=== PATIENT | female | born 1950 | race Caucasian/White ===

== ENCOUNTER → 2016-05-31 | Outpatient (CLI) | payer MEDICARE, OTHER ==
--- NOTE | 2016-05-31 16:13 | KCIC ---
PROCEDURE Complete pelvic ultrasound. HISTORY Postmenopausal bleeding. Follow-up. TECHNIQUE Real-time ultrasound imaging of the pelvis using transabdominal and transvaginal windows performed. COMPARISON Transvaginal pelvic ultrasound June 03, 2014. FINDINGS Uterus measures 7.2 x 3.7 x 4.7 cm. The endometrial stripe is thickened and heterogeneous measuring up to 15 millimeters. On prior study it measured 10 millimeters. Right ovary is not well seen measuring 1.8 x 1.1 x 1.2 cm. There is normal arterial flow. The left ovary is not identified. No cul-de-sac free fluid. IMPRESSION 1. The endometrial stripe is abnormally thickened and heterogeneous. The thickening is worse than on the prior study. Considerations include endometrial hyperplasia, carcinoma, or polyp. 2. Left ovary is not identified. Electronically signed by: Simon Mckeon MD (May 31, 2016 16:12:07)
== END | disposition home or self-care (01) ==
LOC: KCIC US 15:14
PROVIDERS: ATTEND Obstetrics & Gynecology
DX: N95.0 Postmenopausal bleeding (principal); N85.00 Endometrial hyperplasia, unspecified
CPT/HCPCS: 76830; 76856

== ENCOUNTER → 2018-06-14 | Outpatient (CLI) | payer MEDICARE, OTHER ==
--- NOTE | 2018-06-14 09:13 | KCIC ---
Examination: PELVIS W/TV History: Postmenopausal bleeding Comparison/Correlation: None Findings: Transabdominal and transvaginal pelvic ultrasound exam were performed. Transvaginal technique was utilized to better assess the adnexal structures. Uterus measures 6.5 cm x 3.6 cm x 3 3.8 cm. Endometrial thickness of 1.3 cm noted. Heterogeneous appearance of the myometrium noted. Calcifications are noted involving the myometrium and endometrium. Ovaries are not identified. Overlying bowel gas may limit assessment. No pelvic free fluid. Impression: Thickened endometrium is present. Consider direct visualization to exclude underlying mass lesion. Heterogeneity of the myometrium which may represent diffuse fibroid involvement. Electronically signed by: Carlos Fraser MD (06/14/2018 9:09 AM) [facility]
== END | disposition home or self-care (01) ==
LOC: KCIC US 07:32
PROVIDERS: ATTEND Obstetrics & Gynecology
DX: N95.0 Postmenopausal bleeding (principal); R93.89 Abnormal findings on diagnostic imaging of other specified body structures
CPT/HCPCS: 76830; 76856

== ENCOUNTER 2019-02-20 08:40 | Inpatient (IN) | payer MEDICARE, OTHER ==
[~2019-02-20] VITALS: Ht 167.6 cm; Wt 107.5 kg
[2019-02-20] MEDS ORDERED: NITROGLYCERIN SUBLINGUAL 0.4 MG BOTTLE OF 25. SL PRN (09:00)
[2019-02-20 09:06] LABS: BASO % 1 % (0-3); EOS # 0.2 x10^3/uL (0.0-0.7); EOS % 2 % (0-3); HEMATOCRIT 40.2 % (36.0-47.0); HEMOGLOBIN 13.7 g/dL (12.0-15.5); LYMPH # 1.7 x10^3/uL (1.0-4.8); LYMPH % 21 % (24-48); MEAN CORPUSCULAR HEMOGLOBIN 32 pg (25-35); MEAN CORPUSCULAR HGB CONC 34 g/dL (31-37); MEAN CORPUSCULAR VOLUME 92 fL (79-100); MONO # 0.7 x10^3/uL (0.0-1.1); MONO % 9 % (0-9); NEUT # 5.3 x10^3/uL (1.8-7.7); NEUT % 67 % (31-73); PLATELET COUNT 257 x10^3/uL (140-400); RED BLOOD COUNT 4.35 x10^6/uL (3.50-5.40); RED CELL DISTRIBUTION WIDTH 13.3 % (11.5-14.5); WHITE BLOOD COUNT 7.8 x10^3/uL (4.0-11.0)
--- NOTE | 2019-02-20 09:11 | RAD ---
PORTABLE CHEST 1V History: Chest pain Comparison: October 01, 2014 Findings: Single view of the chest is submitted. There is no lobar consolidation, pleural fluid, pneumothorax.There is some atherosclerotic calcification near the aortic arch. Appearance of somewhat more prominent pericardial cardiac silhouette may be accentuated by differences in technique. Impression: 1. Appearance of somewhat more prominent pericardial cardiac silhouette could be accentuated by differences in technique, otherwise no acute radiographic abnormality. Electronically signed by: Rip Licona MD (02/20/2019 9:08 AM) [id number]
[2019-02-20 09:15] LABS: PROTHROMBIN TIME PATIENT 12.9 SEC (11.7-14.0)
[2019-02-20 09:22] LABS: CALCIUM 9.9 mg/dL (8.5-10.1); CREATININE 1.1 mg/dL (0.6-1.0); GFR 49.1
[2019-02-20 09:24] LABS: POTASSIUM 4.6 mmol/L (3.5-5.1)
[2019-02-20 09:28] LABS: ALBUMIN 3.7 g/dL (3.4-5.0); ALBUMIN/GLOBULIN RATIO 0.8 (1.0-1.7); MAGNESIUM 1.9 mg/dL (1.8-2.4); TOTAL BILIRUBIN 0.7 mg/dL (0.2-1.0); TOTAL PROTEIN 8.2 g/dL (6.4-8.2)
--- NOTE | 2019-02-20 09:49 | PHYS DOC ---
Past Medical History Past Medical History: Diabetes-Type I, Hypertension Past Surgical History: No Surgical History Alcohol Use: None Drug Use: None Adult General Chief Complaint Chief Complaint: CHEST PAIN [facility] HPI Patient is a 68 year old female who presents with complaining of chest pain. Patient complaining of intermittent episodes of substernal aching chest pain since 0430 today that last about 10- 15 minutes and repeated several times and rated her pain as 1- 2/10. She denies shortness of breath, dizziness, p alpitation, cough and congestion, fever and chills, nausea and vomiting. Patient states she thought she had indigestion because of umbilical and hiatal hernia and took Nexium without improvement of her pain. Patient states she had episodes of milder chest pain previously as a heart and denies history of cardiac problems. Review of Systems Review of Systems Constitutional: Denies fever or chills [] Eyes: Denies change in visual acuity, redness, or eye pain [] HENT: Denies nasal congestion or sore throat [] Respiratory: Denies cough or shortness of breath [] Cardiovascular: No additional information not addressed in HPI [] GI: Denies abdominal pain, nausea, vomiting, bloody stools or diarrhea [] : Denies dysuria or hematuria [] Musculoskeletal: Denies back pain or joint pain [] Integument: Denies rash or skin lesions [] Neurologic: Denies headache, focal weakness or sensory changes [] Endocrine: Denies polyuria or polydipsia [] All other systems were reviewed and found to be within normal limits, except as documented in this note. Current Medications Current Medications Current Medications Medications (Trade) Dose Ordered Sig/Marina Start Time Stop Time Status Last Admin Dose Admin Carvedilol (Coreg) 25 mg 1X STAT 02/20/19 10:35 02/20/19 10:44 DC 02/20/19 10:57 25 MG Nitroglycerin (Nitrostat) 0.4 mg PRN Q5MIN PRN 02/20/19 09:00 02/21/19 08:59 02/20/19 09:36 0.4 MG Allergies Allergies Allergies Coded Allergies Type Severity Reaction Last Updated Verified No Known Drug Allergies 02/20/19 No Physical Exam Physical Exam Constitutional: Well developed, well nourished, mild distress, non-toxic appearance. [] HENT: Normocephalic, atraumatic. Eyes: PERRLA, EOMI, conjunctiva normal, no discharge. [] Neck: Normal range of motion, no tenderness, supple, no stridor. [] Cardiovascular:Heart rate regular rhythm, no murmur [] Lungs & Thorax: Bilateral breath sounds clear to auscultation [] Abdomen: Bowel sounds normal, soft, no tenderness, no masses, no pulsatile masses, large umbilical hernia with fat containing without tenderness or sign of obstruction. [] Skin: Warm, dry, no erythema, no rash. [] Back: No tenderness, no CVA tenderness. [] Extremities: No tenderness, no cyanosis, no clubbing, ROM intact, no edema. [] Neurologic: Alert and oriented X 3, no focal deficits noted. [] Psychologic: Affect normal, judgement normal, mood normal. [] Current Patient Data Vital Signs Vital Signs Date Time Temp Pulse Resp B/P (MAP) Pulse Ox O2 Delivery O2 Flow Rate FiO2 02/20/19 09:58 180/86 (117) 02/20/19 09:49 64 18 95 Room Air 02/20/19 08:40 97.8 97.8 Lab Values Laboratory Tests Test 02/20/19 08:56 White Blood Count 7.8 x10^3/uL (4.0-11.0) Red Blood Count 4.35 x10^6/uL (3.50-5.40) Hemoglobin 13.7 g/dL (12.0-15.5) Hematocrit 40.2 % (36.0-47.0) Mean Corpuscular Volume 92 fL (79-100) Mean Corpuscular Hemoglobin 32 pg (25-35) Mean Corpuscular Hemoglobin Concent 34 g/dL (31-37) Red Cell Distribution Width 13.3 % (11.5-14.5) Platelet Count 257 x10^3/uL (140-400) Neutrophils (%) (Auto) 67 % (31-73) Lymphocytes (%) (Auto) 21 % (24-48) L Monocytes (%) (Auto) 9 % (0-9) Eosinophils (%) (Auto) 2 % (0-3) Basophils (%) (Auto) 1 % (0-3) Neutrophils # (Auto) 5.3 x10^3/uL (1.8-7.7) Lymphocytes # (Auto) 1.7 x10^3/uL (1.0-4.8) Monocytes # (Auto) 0.7 x10^3/uL (0.0-1.1) Eosinophils # (Auto) 0.2 x10^3/uL (0.0-0.7) Basophils # (Auto) 0.0 x10^3/uL (0.0-0.2) Prothrombin Time 12.9 SEC (11.7-14.0) Prothrombin Time INR 1.0 (0.8-1.1) Sodium Level 138 mmol/L (136-145) Potassium Level 4.6 mmol/L (3.5-5.1) Chloride Level 103 mmol/L (98-107) Carbon Dioxide Level 26 mmol/L (21-32) Anion Gap 9 (6-14) Blood Urea Nitrogen 25 mg/dL (7-20) H Creatinine 1.1 mg/dL (0.6-1.0) H Estimated GFR (Cockcroft-Gault) 49.1 BUN/Creatinine Ratio 23 (6-20) H Glucose Level 139 mg/dL (70-99) H Calcium Level 9.9 mg/dL (8.5-10.1) Magnesium Level 1.9 mg/dL (1.8-2.4) Total Bilirubin 0.7 mg/dL (0.2-1.0) Aspartate Amino Transferase (AST) 23 U/L (15-37) Alanine Aminotransferase (ALT) 20 U/L (14-59) Alkaline Phosphatase 101 U/L (46-116) Creatine Kinase 76 U/L (26-192) Troponin I Quantitative < 0.017 ng/mL (0.000-0.055) EH-Csi-X-Type Natriuretic Peptide 101 pg/mL (0-124) Total Protein 8.2 g/dL (6.4-8.2) Albumin 3.7 g/dL (3.4-5.0) Albumin/Globulin Ratio 0.8 (1.0-1.7) L Triglycerides Level 111 mg/dL (0-150) Cholesterol Level 162 mg/dL (0-200) LDL Cholesterol, Calculated 86 mg/dL (0-100) VLDL Cholesterol, Calculated 22 mg/dL (0-40) Non-HDL Cholesterol Calculated 108 mg/dL (0-129) HDL Cholesterol 54 mg/dL (40-60) Cholesterol/HDL Ratio 3.0 Lipase 219 U/L (73-393) Laboratory Tests 02/20/19 08:56 Laboratory Tests 02/20/19 08:56 EKG EKG Interpreted by me. EKG at 0 847 showed normal sinus rhythm at rate of 66, leftward axis, no ST/T-wave elevation. Radiology/Procedures Radiology/Procedures [][facility] [address] [place] [address] IMAGING REPORT Signed PATIENT: DALLIN BRIDGES ACCOUNT: [id number] : 1950 LOCATION: ER AGE: 68 SEX: F EXAM STATUS: REG ER ORD. PHYSICIAN: CAYDEN WILLIAMSON MD REASON: chest pain PROCEDURE: PORTABLE CHEST 1V PORTABLE CHEST 1V History: Chest pain Comparison: October 01, 2014 Findings: Single view of the chest is submitted. There is no lobar consolidation, pleural fluid, pneumothorax.There is some atherosclerotic calcification near the aortic arch. Appearance of somewhat more prominent pericardial cardiac silhouette may be accentuated by differences in technique. Impression: 1. Appearance of somewhat more prominent pericardial cardiac silhouette could be accentuated by differences in technique, otherwise no acute radiographic abnormality. Electronically signed by: Trinidad Licona MD (02/20/2019 9:08 AM) [id number] DICTATED and SIGNED BY: TRINIDAD LICONA MD DATE: 02/20/19907 Course & Med Decision Making Course & Med Decision Making Pertinent Labs and Imaging studies reviewed. (See chart for details) Evaluation of patient in ER showed 68-year-old male patient with heart score of 5 complaining of episodes of chest pain since this morning with unremarkable EKG and lab. Patient had elevation of blood pressure in ER and was anxious and treated with her home medication and felt better. Patient didn't want to take new medication from emergency room. Patient refused to take aspirin. Patient requiring admission for further evaluation and treatment. Discussed with Dr. Box who is in agreement with admission. Discussed findings and plan with patient and family, who acknowledge understanding and agreement. Dragon Disclaimer Dragon Disclaimer This electronic medical record was generated, in whole or in part, using a voice recognition dictation system. Departure Departure Impression: Primary Impression: Acute chest pain Additional Impressions: Renal insufficiency Hypertensive urgency Anxiety about health Disposition: 09 ADMITTED INPATIENT (1055) Admitting Physician: VIOLET (Dr. Box accepted admission at 1054) Condition: IMPROVED Referrals: JORDAN LOPEZ MD (PCP) Scripts Montelukast Sodium (MONTELUKAST SODIUM TABLET ) 10 Mg Tablet 10 MG PO HS PRN for 48 hours prior to allergy seas for 30 Days, #30 TAB 5 Refills Prov: PRISCILA BOX MD 02/20/19 The HEART Score for CP Pts HEART Score for Chest Pain: HEART Score for Chest Pain Response (Comments) Value History Moderately Suspicious 1 ECG Normal 0 Age > 65 2 Risk Factors >3 Risk Factors or Hx CAD 2 Troponin < Normal Limit 0 Total 5 Risk Factors: Risk Factors: DM, Current or recent (<one month) smoker, HTN, HLP, family history of CAD, obesity. Risk Scores: Score 0 - 3: 2.5% MACE over next 6 weeks - Discharge Home Score 4 - 6: 20.3% MACE over next 6 weeks - Admit for Clinical Observation Score 7 - 10: 72.7% MACE over next 6 weeks - Early Invasive Strategies Problem Qualifiers CAYDEN WILLIAMSON MD Feb 20, 2019 09:49
--- NOTE | 2019-02-20 09:55 | RAD ---
ABDOMEN LTD History: Epigastric and right upper quadrant pain Comparison: None. Findings: Multiple sonographic images of the abdomen are submitted. Right lobe liver measured 16.7 cm longitudinal. Hepatic echogenicity is within normal limits. There is no abnormality visualized pancreas, tail of pancreas obscured by bowel gas. Visualized abdominal aortic caliber is within normal limits, distally obscured by bowel gas. There is segmental visualization of the inferior vena cava. Right kidney measured 10.5 0.4 x 5.5 cm, no hydronephrosis. There is a hypoechoic lesion superiorly of the right kidney on the order of 4.7 x 4.3 x 5 cm. There is a hypoechoic lesion inferiorly of the right kidney about 6.8 x 6.5 x 5.6 cm. Gallbladder is present without intraluminal abnormality, wall thickening, pericholecystic fluid. Common bile duct is within normal limits about 0.4 cm. Impression: 1. There are large right renal cysts. No other significant abnormality is demonstrated, incompletely visualization of pancreatic tail and the distal abdominal aorta. Electronically signed by: Rip Licona MD (02/20/2019 9:52 AM) [id number]
--- NOTE | 2019-02-20 10:23 | EKG ---
[facility] [address] [place] [address] Test Date: 2019-02-20 Test Time: 08:47:22 Pat Name: DALLIN BRIDGES Department: Room: Gender: F Surgical Services Manager: : 1950 Requested By: CAYDEN WILLIAMSON Order Number: [id number] Reading MD: Gigi Packer MD Measurements Intervals [place] Rate: 65 P: 65 ME: 190 QRS: -7 QRSD: 86 T: 15 QT: 380 QTc: 400 Interpretive Statements SINUS RHYTHM Electronically Signed On 02-20-2019 12:38:41 CDT by Gigi Packer MD
[2019-02-20] MEDS ORDERED: CARVEDILOL 12.5 MG TABLET. PO STA (10:35)
[2019-02-20] MEDS ORDERED: cloNIDine HCL 0.1 MG TABLET PO ONE (10:45)
[2019-02-20] MEDS ORDERED: LORazepam 0.5 MG TABLET PO ONE (10:45)
--- NOTE | 2019-02-20 11:02 | PDOC1 ---
History and Physical Date of Admission Date of Admission DATE: 02/20/19 TIME: 11:00 Identification/Chief Complaint Chief Complaint Chest pain Source Source: Patient History of Present Illness History of Present Illness Ms Norton is a 68yo F w/ PMHx Diabetes, Hypertension, MIHIR on CPAP, Rajan's Esophagus who presents with complaining of chest pain that awoke her at 4:30 this morning. Patient complaining of intermittent episodes of substernal aching chest pain since then that last about 10- 15 minutes and repeated several times and rated her pain as 1- 2/10. She denies shortness of breath, dizziness, palpitation, cough and congestion, fever and chills, nausea and vomiting. Patient states she thought she had exacerbation of her prior GERD because of h/o Rajan's and hiatal hernia and took Nexium without improvement of her pain. Patient states she had episodes of milder chest pain previously as a heart and denies history of cardiac problems. Does f/u with Dr. Keith outpatient. She has not been sleeping well. CXR shows enlarged pericardial silhouette, EKG shows leftward axis, no ST segment changes. Initial troponin negative Past Medical History Cardiovascular: HTN, Hyperlipidemia Pulmonary: Other (MIHIR on CPAP) GI: GERD, Other (Rajan's esophagus) Heme/Onc: No pertinent hx Hepatobiliary: No pertinent hx Psych: No pertinent hx Rheumatologic: No pertinent hx Infectious disease: No pertinent hx ENT: No pertinent hx Renal/: No pertinent hx Endocrine: Diabetes Dermatology: No pertinent hx Past Surgical History Past Surgical History: Cataract Removal, Total knee replacement (Bilateral), Tubal Ligation Family History Family History: Diabetes, Hypertension Social History Smoke: No ALCOHOL: none Drugs: None Current Problem List Problem List Problems Medical Problems: (1) Acute chest pain Status: Acute (2) Renal insufficiency Status: Acute Current Medications Current Medications Current Medications Nitroglycerin (Nitrostat) 0.4 mg PRN Q5MIN PRN SL CP RATING > 1/10 Last administered on 02/20/19at 09:36; Start 02/20/19 at 09:00; Stop 02/21/19 at 08:59 Clonidine HCl (Catapres) 0.1 mg 1X ONCE PO ; Start 02/20/19 at 10:45; Stop 02/20/19 at 10:38; Status DC Lorazepam (Ativan) 0.5 mg 1X ONCE PO Last administered on 02/20/19at 10:43; Start 02/20/19 at 10:45; Stop 02/20/19 at 10:46; Status DC Carvedilol (Coreg) 25 mg 1X STAT PO Last administered on 02/20/19at 10:57; Start 02/20/19 at 10:35; Stop 02/20/19 at 10:44; Status DC Allergies Allergies: Coded Allergies: No Known Drug Allergies (Unverified , 02/20/19) ROS General: YES: Fatigue, Malaise; No: Chills, Night Sweats, Appetite, Other PSYCHOLOGICAL ROS: YES: Anxiety, Sleep disturbances; No: Behavioral Disorder, Concentration difficultie, Decreased libido, D epression, Disorientation, Hallucinations, Hostility, Irritablity, Memory difficulties, Mood Swings, Obsessive thoughts, Physical abuse, Sexual abuse, Suicidal ideation, Other Eyes: No Blurry vision, No Decreased vision, No Double vision, No Dry eyes, No Excessive tearing, No Eye Pain, No Itchy Eyes, No Loss of vision, No Photophobia, No Scotomata, No Uses contacts, No Uses glasses, No Other HEENT: No: Heacaches, Visual Changes, Hearing change, Nasal congestion, Nasal discharge, Oral lesions, Sinus pain, Sore Throat, Epistaxis, Sneezing, Snoring, Tinnitus, Vertigo, Vocal changes, Other ALLERGY AND IMMUNOLOGY: No: Hives, Insect Bite Sensitivity, Itchy/Watery Eyes, Nasal Congestion, Post Nasal Drip, Seasonal Allergies, Other Hematological and Lymphatic: No: Bleeding Problems, Blood Clots, Blood Campbell sfusions, Brusing, Night Sweats, Pallor, Swollen Lymph Nodes, Other ENDOCRINE: No: Breast Changes, Galactorrhea, Hair Pattern Changes, Hot Flashes, Malaise/lethargy, Mood Swings, Palpitations, Polydipsia/polyuria, Skin Changes, Temperature Intolerance, Unexpected Weight Changes, Other Breast: No New/Changing Breast Lumps, No Nipple changes, No Nipple discharge, No Other Respiratory: No: Cough, Hemoptysis, Orthopnea, Pleuritic Pain, Shortness of breath, SOB with excertion, Sputum Changes, Stridor, Tachypnea, Wheezing, Other Cardiovascular: yes Chest Pain; No Palpitations, No Orthopnea, No Paroxysmal Noc. Dyspnea, No Edema, No Lt Headedness, No Other Gastrointestinal: Yes Nausea, Yes Abdominal Pain; No Vomiting, No Diarrhea, No Constipation, No Melena, No Hematochezia, No Other Genitourinary: No Dysuria, No Frequency, No Incontinence, No Hematuria, No Retention, No Discharge, No Urgency, No Pain, No Flank Pain, No Other, No , No , No , No , No , No , No Musculoskeletal: No Gait Disturbance, No Joint Pain, No Joint Stiffness, No Joint Swelling, No Muscle Pain, No Muscular Weakness, No Pain In:, No Swelling In:, No Other Neurological: No Behavorial Changes, No Bowel/Bladder ControlChng, No Confusion, No Dizziness, No Gait Disturbance, No Headaches, No Impaired Coord/balance, No Memory Loss, No Numbness/Tingling, No Seizures, No Speech Problems, No Tremors, No Visual Changes, No Weakness, No Other Skin: No Dry Skin, No Eczema, No Hair Changes, No Lumps, No Mole Changes, No Mottling, No Nail Changes, No Pruritus, No Rash, No Skin Lesion Changes, No Other, No Acne Vitals Vitals Vital Signs Date Time Temp Pulse Resp B/P (MAP) Pulse Ox O2 Delivery O2 Flow Rate FiO2 02/20/19 10:57 58 203/93 02/20/19 09:49 18 95 Room Air 02/20/19 08:40 97.8 97.8 Labs Labs Laboratory Tests Test 02/20/19 08:56 White Blood Count 7.8 x10^3/uL (4.0-11.0) Red Blood Count 4.35 x10^6/uL (3.50-5.40) Hemoglobin 13.7 g/dL (12.0-15.5) Hematocrit 40.2 % (36.0-47.0) Mean Corpuscular Volume 92 fL (79-100) Mean Corpuscular Hemoglobin 32 pg (25-35) Mean Corpuscular Hemoglobin Concent 34 g/dL (31-37) Red Cell Distribution Width 13.3 % (11.5-14.5) Platelet Count 257 x10^3/uL (140-400) Neutrophils (%) (Auto) 67 % (31-73) Lymphocytes (%) (Auto) 21 % (24-48) Monocytes (%) (Auto) 9 % (0-9) Eosinophils (%) (Auto) 2 % (0-3) Basophils (%) (Auto) 1 % (0-3) Neutrophils # (Auto) 5.3 x10^3/uL (1.8-7.7) Lymphocytes # (Auto) 1.7 x10^3/uL (1.0-4.8) Monocytes # (Auto) 0.7 x10^3/uL (0.0-1.1) Eosinophils # (Auto) 0.2 x10^3/uL (0.0-0.7) Basophils # (Auto) 0.0 x10^3/uL (0.0-0.2) Prothrombin Time 12.9 SEC (11.7-14.0) Prothromb Time International Ratio 1.0 (0.8-1.1) Sodium Level 138 mmol/L (136-145) Potassium Level 4.6 mmol/L (3.5-5.1) Chloride Level 103 mmol/L (98-107) Carbon Dioxide Level 26 mmol/L (21-32) Anion Gap 9 (6-14) Blood Urea Nitrogen 25 mg/dL (7-20) Creatinine 1.1 mg/dL (0.6-1.0) Estimated GFR (Cockcroft-Gault) 49.1 BUN/Creatinine Ratio 23 (6-20) Glucose Level 139 mg/dL (70-99) Calcium Level 9.9 mg/dL (8.5-10.1) Magnesium Level 1.9 mg/dL (1.8-2.4) Total Bilirubin 0.7 mg/dL (0.2-1.0) Aspartate Amino Transf (AST/SGOT) 23 U/L (15-37) Alanine Aminotransferase (ALT/SGPT) 20 U/L (14-59) Alkaline Phosphatase 101 U/L (46-116) Creatine Kinase 76 U/L (26-192) Troponin I Quantitative < 0.017 ng/mL (0.000-0.055) VL-Gpo-Z-Type Natriuretic Peptide 101 pg/mL (0-124) Total Protein 8.2 g/dL (6.4-8.2) Albumin 3.7 g/dL (3.4-5.0) Albumin/Globulin Ratio 0.8 (1.0-1.7) Lipase 219 U/L (73-393) Laboratory Tests Test 02/20/19 08:56 White Blood Count 7.8 x10^3/uL (4.0-11.0) Red Blood Count 4.35 x10^6/uL (3.50-5.40) Hemoglobin 13.7 g/dL (12.0-15.5) Hematocrit 40.2 % (36.0-47.0) Mean Corpuscular Volume 92 fL (79-100) Mean Corpuscular Hemoglobin 32 pg (25-35) Mean Corpuscular Hemoglobin Concent 34 g/dL (31-37) Red Cell Distribution Width 13.3 % (11.5-14.5) Platelet Count 257 x10^3/uL (140-400) Neutrophils (%) (Auto) 67 % (31-73) Lymphocytes (%) (Auto) 21 % (24-48) Monocytes (%) (Auto) 9 % (0-9) Eosinophils (%) (Auto) 2 % (0-3) Basophils (%) (Auto) 1 % (0-3) Neutrophils # (Auto) 5.3 x10^3/uL (1.8-7.7) Lymphocytes # (Auto) 1.7 x10^3/uL (1.0-4.8) Monocytes # (Auto) 0.7 x10^3/uL (0.0-1.1) Eosinophils # (Auto) 0.2 x10^3/uL (0.0-0.7) Basophils # (Auto) 0.0 x10^3/uL (0.0-0.2) Prothrombin Time 12.9 SEC (11.7-14.0) Prothromb Time International Ratio 1.0 (0.8-1.1) Sodium Level 138 mmol/L (136-145) Potassium Level 4.6 mmol/L (3.5-5.1) Chloride Level 103 mmol/L (98-107) Carbon Dioxide Level 26 mmol/L (21-32) Anion Gap 9 (6-14) Blood Urea Nitrogen 25 mg/dL (7-20) Creatinine 1.1 mg/dL (0.6-1.0) Estimated GFR (Cockcroft-Gault) 49.1 BUN/Creatinine Ratio 23 (6-20) Glucose Level 139 mg/dL (70-99) Calcium Level 9.9 mg/dL (8.5-10.1) Magnesium Level 1.9 mg/dL (1.8-2.4) Total Bilirubin 0.7 mg/dL (0.2-1.0) Aspartate Amino Transf (AST/SGOT) 23 U/L (15-37) Alanine Aminotransferase (ALT/SGPT) 20 U/L (14-59) Alkaline Phosphatase 101 U/L (46-116) Creatine Kinase 76 U/L (26-192) Troponin I Quantitative < 0.017 ng/mL (0.000-0.055) ZX-Enj-T-Type Natriuretic Peptide 101 pg/mL (0-124) Total Protein 8.2 g/dL (6.4-8.2) Albumin 3.7 g/dL (3.4-5.0) Albumin/Globulin Ratio 0.8 (1.0-1.7) Lipase 219 U/L (73-393) Images Images CXR - enlarged cardiac silhouette Abdominal US - There are large right renal cysts. No other significant abnor mality is demonstrated, incompletely visualization of pancreatic tail and the distal abdominal aorta. VTE Prophylaxis Ordered VTE Prophylaxis Devices: Yes VTE Pharmacological Prophylaxi: Yes Assessment/Plan Assessment/Plan A/P: Chest pain - with strong GI history, negative EKG and cardiac enzymes. Will consult cardiology, she has a reverser outpatient already. Trend troponins, check echo Diabetes - basal bolus plus insulin Hypertension - cont meds MIHIR on CPAP - home CPAP Rajan's Esophagus - will cont PPI FEN - Cardiac diet PPX - Lovenox FULL CODE Dispo - inpatient for chest pain PRISCILA BOX MD Feb 20, 2019 11:02
[2019-02-20 11:30] VITALS: BP 156/69
--- NOTE | 2019-02-20 11:54 | PDOC2 ---
CHARITY PINEDA SPECIMEN BOSS 02/20/19 1154: CARDIAC CONSULT DATE OF CONSULT Date of Consult DATE: 02/20/19 TIME: 11:50 REASON FOR CONSULT Reason for Consult: Chest pain REFERRING PHYSICIAN Referring Physician: Dr. Esparza SOURCE Source: Chart review, Patient HISTORY OF PRESENT ILLNESS HISTORY OF PRESENT ILLNESS This is a 68 yo female who presented secondary to chest pain. Patient reports pain began this morning around 4:30 am. Located in her central chest. Describes as aching in natures. No associated dizziness, diaphoresis, shortness of breath, or nausea/vomiting. Does report slight pain in her bilateral arms. Pain was intermittent. Would last about 15 minutes and resolved without intervention then would return. No specific precipitating, exacerbating, or reliving factors. [place] like GERD pain has in the past. Does have a history of Rajan's Esophagus, which she reports being controlled in the past. Follows with Dr. Keith. No recent CABRERA. Does report that she has been more tired recently, but attribute this to not sleeping well. Anxiety has been increase the last couple of months, which has led to some insomnia. PAST MEDICAL HISTORY Cardiovascular: HTN Pulmonary: Other (MIHIR with CPAP) GI: GERD, Other (Rajan's Esophagus ) Psych: Anxiety Musculoskeletal: Osteoarthritis Endocrine: Diabetes PAST SURGICAL HISTORY Past Surgical History: Cataract Removal, Total knee replacement (bilateral ), Tubal Ligation FAMILY HISTORY Family History: Diabetes, Hypertension SOCIAL HISTORY Smoke: No ALCOHOL: none Drugs: None Lives: with Family CURRENT MEDICATIONS CURRENT MEDICATIONS Current Medications Medications (Trade) Dose Ordered Sig/Marina Route PRN Reason Start Time Stop Time Status Last Admin Dose Admin Nitroglycerin (Nitrostat) 0.4 mg PRN Q5MIN PRN SL CP RATING > 1/10 02/20/19 09:00 02/21/19 08:59 02/20/19 09:36 Lorazepam (Ativan) 0.5 mg 1X ONCE PO 02/20/19 10:45 02/20/19 10:46 DC 02/20/19 10:43 Carvedilol (Coreg) 25 mg 1X STAT PO 02/20/19 10:35 02/20/19 10:44 DC 02/20/19 10:57 ALLERGIES ALLERGIES: Coded Allergies: No Known Drug Allergies (Unverified , 02/20/19) ROS Review of System 14 point ROS conducted with pertinent positives noted above in HPI PHYSICAL EXAM General: Alert, Oriented X3, Cooperative, No acute distress HEENT: Atraumatic, Mucous membr. moist/pink Lungs: Clear to auscultation, Normal air movement Heart: Regular rate, Normal S1, Normal S2, No murmurs Abdomen: No tenderness Extremities: No edema, Normal pulses Skin: No significant lesion Neuro: Normal speech, Sensation intact Psych/Mental Status: Mental status NL, Mood NL MUSCULOSKELETAL: Osteoarthritic changes both hands VITALS/I&O VITALS/I&O: Vital Signs Date Time Temp Pulse Resp B/P (MAP) Pulse Ox O2 Delivery O2 Flow Rate FiO2 02/20/19 10:57 58 203/93 02/20/19 09:49 18 95 Room Air 02/20/19 08:40 97.8 97.8 LABS Lab: Laboratory Tests Test 02/20/19 08:56 White Blood Count 7.8 x10^3/uL (4.0-11.0) Red Blood Count 4.35 x10^6/uL (3.50-5.40) Hemoglobin 13.7 g/dL (12.0-15.5) Hematocrit 40.2 % (36.0-47.0) Mean Corpuscular Volume 92 fL (79-100) Mean Corpuscular Hemoglobin 32 pg (25-35) Mean Corpuscular Hemoglobin Concent 34 g/dL (31-37) Red Cell Distribution Width 13.3 % (11.5-14.5) Platelet Count 257 x10^3/uL (140-400) Neutrophils (%) (Auto) 67 % (31-73) Lymphocytes (%) (Auto) 21 % (24-48) L Monocytes (%) (Auto) 9 % (0-9) Eosinophils (%) (Auto) 2 % (0-3) Basophils (%) (Auto) 1 % (0-3) Neutrophils # (Auto) 5.3 x10^3/uL (1.8-7.7) Lymphocytes # (Auto) 1.7 x10^3/uL (1.0-4.8) Monocytes # (Auto) 0.7 x10^3/uL (0.0-1.1) Eosinophils # (Auto) 0.2 x10^3/uL (0.0-0.7) Basophils # (Auto) 0.0 x10^3/uL (0.0-0.2) Prothrombin Time 12.9 SEC (11.7-14.0) Prothrombin Time INR 1.0 (0.8-1.1) Sodium Level 138 mmol/L (136-145) Potassium Level 4.6 mmol/L (3.5-5.1) Chloride Level 103 mmol/L (98-107) Carbon Dioxide Level 26 mmol/L (21-32) Anion Gap 9 (6-14) Blood Urea Nitrogen 25 mg/dL (7-20) H Creatinine 1.1 mg/dL (0.6-1.0) H Estimated GFR (Cockcroft-Gault) 49.1 BUN/Creatinine Ratio 23 (6-20) H Glucose Level 139 mg/dL (70-99) H Calcium Level 9.9 mg/dL (8.5-10.1) Magnesium Level 1.9 mg/dL (1.8-2.4) Total Bilirubin 0.7 mg/dL (0.2-1.0) Aspartate Amino Transferase (AST) 23 U/L (15-37) Alanine Aminotransferase (ALT) 20 U/L (14-59) Alkaline Phosphatase 101 U/L (46-116) Creatine Kinase 76 U/L (26-192) Troponin I Quantitative < 0.017 ng/mL (0.000-0.055) QP-Lsu-I-Type Natriuretic Peptide 101 pg/mL (0-124) Total Protein 8.2 g/dL (6.4-8.2) Albumin 3.7 g/dL (3.4-5.0) Albumin/Globulin Ratio 0.8 (1.0-1.7) L Lipase 219 U/L (73-393) Laboratory Tests 02/20/19 08:56 Laboratory Tests 02/20/19 08:56 ASSESSMENT/PLAN ASSESSMENT/PLAN Chest pain, atypical; Initial troponin negative Rajan's esophagus Hypertension Diabetes, II; controlled with diet and exercise MIHIR with CPAP Anxiety Recommendations Trend troponin Lipid panel Echo to assess LV systolic function If above WNL, may discharge from a CV standpoint and f/u in our office with Dr. Packer Will arrange for outpatient stress test given risk factors. ALE PACKER MD 02/20/19 2552: CARDIAC CONSULT ASSESSMENT/PLAN ASSESSMENT/PLAN Pt. seen and examined. Agree with above MANAGER OF OPERATIONS note. 68 y.o woman with atypical chest pain. Probable GERD exam, labs, ekg wnl Echo pending, if wnl, then can d/c with clinic f/u in 3 months. No need for stress testing If echo abn, will determine further plans. CHARITY PINEDA APRN Feb 20, 2019 11:54 ALE PCAKER MD Feb 20, 2019 14:51
[2019-02-20] MEDS ORDERED: ESOM40CA PO (12:32)
[2019-02-20] MEDS ORDERED: CARV25TA2 PO (12:32)
[2019-02-20] MEDS ORDERED: CELE200C PO (12:32)
[2019-02-20] MEDS ORDERED: DESL5TAB PO (12:32)
[2019-02-20] MEDS ORDERED: CINN500C2 PO (12:33)
[2019-02-20] MEDS ORDERED: LOSA50TA15 PO (12:33)
[2019-02-20] MEDS ORDERED: POTA10TA12 PO (12:33)
[2019-02-20] MEDS ORDERED: HYDR50TA6 PO (12:33)
[2019-02-20] MEDS ORDERED: MAGN400C PO (12:33)
[2019-02-20] MEDS ORDERED: MONT10TA49 PO (15:54)
--- NOTE | 2019-02-20 17:50 | CARD ---
MR#: [id number] Date of Study: 02/20/2019 Ordering Physician: CHARITY PINEDA, Referring Physician: CHARITY PINEDA, Tech: Kelin Cardona [facility] APPROVED REPORT EXAM: Two-dimensional and M-mode echocardiogram with Doppler and color Doppler. Other Information Quality : AverageHR: 60bpm Rhythm : NSR INDICATION Chest Pain 2D DIMENSIONS RVDd3.0 (2.9-3.5cm)Left Atrium(2D)3.1 (1.6-4.0cm) IVSd1.1 (0.7-1.1cm)Aortic Root(2D)2.6 (2.0-3.7cm) LVDd4.6 (3.9-5.9cm)LVOT Diameter2.2 (1.8-2.4cm) PWd0.8 (0.7-1.1cm)LVDs3.3 (2.5-4.0cm) FS (%) 28.5 %SV52.9 ml LVEF(%)55.1 (>50%) Aortic Valve AoV Peak Yves.141.1cm/sAoV VTI34.8cm AO Peak GR.8.0mmHgLVOT Peak Yves.92.4cm/s LVOT VTI 21.05cmAO Mean GR.5mmHg KATY (VMAX)1.19ki5PCT (VTI)2.20cm2 Mitral Valve MV E Kbrtlgyb94.1cm/sMV DECEL JEVB467px MV A Ejdlwcvm525.7cm/sMV NHB20ed E/A Ratio0.8MVA (PHT)4.31cm2 Pulmonary Valve PV Peak Mmaoqmau659.6cm/sPV Peak Grad.5mmHg Tricuspid Valve TR P. Lfhgzabp933gm/sRAP EWOSWLTJ9ofTc TR Peak Gr.50brQqOSCX83kfCb Pulmonary Vein S1 Kpjvvjsb10.0cm/sD2 Vmqngfgc51.1cm/s PVa jmjujqkc751nzwo LEFT VENTRICLE The left ventricle is normal size. Proximal septal thickening is noted. The left ventricular systolic function is normal and the ejection fraction is within normal range. The Ejection Fraction is 55-60% . There is normal LV segmental wall motion. Transmitral Doppler flow pattern is Grade I-abnormal rela xation pattern. RIGHT VENTRICLE The right ventricle is normal size. There is normal right ventricular wall thickness. The right ventr icular systolic function is normal. ATRIA The left atrium size is normal. The right atrium size is normal. The interatrial septum is intact wit h no evidence for an atrial septal defect or patent foramen ovale as noted on 2-D or Doppler imaging. AORTIC VALVE The aortic valve is normal in structure and function. The aortic valve is trileaflet. Doppler and Col or Flow revealed no significant aortic regurgitation. There is no significant aortic valvular stenosi s. There is no aortic valvular vegetation. MITRAL VALVE The mitral valve is normal in structure and function. There is no evidence of mitral valve prolapse. There is no mitral valve stenosis. Doppler and Color-flow revealed trace to mild mitral regurgitation . TRICUSPID VALVE The tricuspid valve is normal in structure and function. Doppler and Color Flow revealed trace tricus pid regurgitation. The PA pressure was estimated at 26 mmHg. There is no tricuspid valve prolapse or vegetation. There is no tricuspid valve stenosis. PULMONIC VALVE The pulmonic valve is not well visualized. GREAT VESSELS The aortic root is normal in size. The ascending aorta is normal in size. The IVC is normal in size a nd collapses >50% with inspiration. PERICARDIAL EFFUSION There is no evidence of significant pericardial effusion. Critical Notification Critical Value: No <Conclusion> The left ventricle is normal size. The left ventricular systolic function is normal and the ejection fraction is within normal range. The Ejection Fraction is 55-60%. There is normal LV segmental wall motion. There is no significant aortic valvular stenosis. Doppler and Color Flow revealed no significant aortic regurgitation. Doppler and Color-flow revealed trace to mild mitral regurgitation. Doppler and Color Flow revealed trace tricuspid regurgitation. The PA pressure was estimated at 26 mmHg. Signed by : Leander Ponce MD Electronically Approved : 02/20/2019 17:49:44
--- NOTE | 2019-02-20 18:12 | NUR ---
Discharge Note: DALLIN BRIDGES [address] Discharge instructions and discharge home medications reviewed with Patient and a copy given. All questions have been answered and understanding verbalized. The following instructions and handouts were given: chest pain Discontinued lines and drains: Peripheral IV intact. Patient discharged to Home or Self Care with Spouse via Ambulated
== END 2019-02-20 18:13 | disposition home or self-care (01) | DRG 392 ==
LOC: ER 08:40 → 2 SOUTH 10:36
PROVIDERS: ADMIT Internal Medicine; ATTEND Internal Medicine
DX: K21.9 Gastro-esophageal reflux disease without esophagitis (principal); E10.9 Type 1 diabetes mellitus without complications; I16.0 Hypertensive urgency; F41.9 Anxiety disorder, unspecified; I10 Essential (primary) hypertension; G47.33 Obstructive sleep apnea (adult) (pediatric); E78.5 Hyperlipidemia, unspecified; Z83.3 Family history of diabetes mellitus; Z82.49 Family history of ischemic heart disease and other diseases of the circulatory system; Z96.653 Presence of artificial knee joint, bilateral; Z79.4 Long term (current) use of insulin; K22.70 Barrett's esophagus without dysplasia; G47.00 Insomnia, unspecified; M19.90 Unspecified osteoarthritis, unspecified site; K44.9 Diaphragmatic hernia without obstruction or gangrene
CPT/HCPCS: 36415; 71045; 76705; 80053; 80061; 82550; 83690; 83735; 83880; 84484; 85025; 85610; 93005; 93306; 99285-25; G0378

== ENCOUNTER 2020-11-18 21:24 | Emergency (ER) | payer MEDICARE, OTHER ==
[~2020-11-18] VITALS: Ht 167.6 cm; Wt 103.0 kg
[~2020-11-18 21:24] MED LIST: CARV25TA2 PO; CELE200C PO; CINN500C2 PO; DESL5TAB PO; ESOM40CA PO; HYDR50TA9 PO; LOSA50TA15 PO; MAGN400C PO; MONT10TA49 PO; POTA10TA12 PO
--- NOTE | 2020-11-18 23:00 | PHYS DOC ---
Past Medical History Past Medical History: Diabetes-Type I, Hypertension Past Surgical History: No Surgical History Smoking Status: Never Smoker Alcohol Use: None Drug Use: None General Adult EDM: Chief Complaint: HYPERTENSION HPI: HPI: 69-year-old female past medical history hypertension presents with a chief complaint of high blood pressure. Patient states blood pressure is been high on and off since Sunday. Patient states Sunday she tripped and fell and bruised her right chest. Patient states she has also had associated headache. Patient currently denies a headache at this time. Tonight patient called her primary care physician when her blood pressure was in the 160s systolic. Primary care physician advised patient to take all her blood pressure medications and watch her sodium intake. Repeat blood pressure 3 hours later was in the 170s. Prior to arrival patient's blood pressure was 175/102--therefore patient presents to the emergency department for evaluation. On exam patient is alert and oriented x4. She has no neurological deficits. She currently denies any headaches. Review of Systems: Review of Systems: Review of systems: Constitutional symptoms- No fever, no chills. Eyes- No Discharge, No Visual Loss Respiratory symptoms- No shortness of breath, No wheezing, No Dyspnea on Exertion Cardiovascular Systems; No chest pain, No Palpitations, No syncope Gastrointestinal symptoms: NO abdominal pain, no nausea, no vomiting or diarrhea. Genitourinary symptoms: No dysuria. Musculoskeletal symptoms: No back pain No extremity pain. NEUROLOGICAL Symptoms: No headache, no generalized weakness; No focal Weakness Skin: No rash. Heart Score: C/O Chest Pain: Yes HEART Score for Chest Pain: HEART Score for Chest Pain Response (Comments) Value History Slighlty/Non-Suspicious 0 ECG Normal 0 Age > 65 2 Risk Factors 1 or 2 Risk Factors 1 Troponin < Normal Limit 0 Total 3 Risk Factors: Risk Factors: DM, Current or recent (<one month) smoker, HTN, HLP, family history of CAD, obesity. Risk Scores: Score 0 - 3: 2.5% MACE over next 6 weeks - Discharge Home Score 4 - 6: 20.3% MACE over next 6 weeks - Admit for Clinical Observation Score 7 - 10: 72.7% MACE over next 6 weeks - Early Invasive Strategies Allergies: Allergies: Allergies Coded Allergies Type Severity Reaction Last Updated Verified No Known Drug Allergies 02/20/19 No Physical Exam: PE: General: alert, no acute distress. Skin: warm, dry and intact. HENT: bilateral external ears normal, oropharynx moist, nose normal. Head:: Normocephalic, atraumatic. Neck: Trachea midline. Eyes: EOMI, Normal conjunctiva, No drainage CARDIOVASCULAR: Regular rate and rhythm RESPIRATORY: No respiratory distress Back: Full range of motion. Skin: Warm, dry, no erythema, no rash. MUSCULOSKELETAL: Full range of motion of bilateral upper and lower extremities. GASTROINTESTINAL: Abdomen soft without rebound or guarding. NEUROLOGICAL: Alert and noted to person, place and time. No neurological deficits observed Psychiatric: Cooperative. Normal judgment EKG: EKG: [] Performed at 2241 Rate [address] elevation No ST depression No acute PA Radiology/Procedures: Radiology/Procedures: [] Impression: INDICATION: Reason: chest pain / Spl. Instructions: / History: COMPARISON: February 2019 FINDINGS: Single view of chest obtained. Cardiac silhouette mildly enlarged with calcific atherosclerosis. Degenerative changes the spine. Patchy opacity left lung base. IMPRESSION: * Mild patchy opacity at left lung base could be atelectasis or infiltrate Course & Med Decision Making: Course & Med Decision Making Pertinent Labs and Imaging studies reviewed. (See chart for details) [] Patient was evaluated for chief complaint. Work-up consisted of laboratory analysis and radiologic imaging and EKG. Results reviewed and discussed with patient. Patient's blood pressure in the 170s systolic initially treated with labetalol 20 mg with minimal improvement. Patient was then treated with hy dralazine 10 mg with improvement to the 160s systolic. While being observed after blood pressure medications patient started to complain of chest discomfort. An EKG was performed showed no acute ischemic changes. Repeat blood pressure was in the 190s. Plan was to admit the patient for high blood pressure and serial cardiac monitoring. Patient was admitted--- But then because patient's not allowed on the floor due to Covid systems patient requested to be discharged home. Patient was discharged home at her request. Prescribed patient clonidine. Advised patient to take clonidine if her blood pressure is elevated to the 180s. Patient advised to continue taking her current medications. Patient advised to follow-up or call her doctor in the a.m. Dragkassandra Disclaimer: Razia Disclaimer: This electronic medical record was generated, in whole or in part, using a voice recognition dictation system. Departure Departure Impression: Primary Impression: Hypertension Additional Impression: Chest pain Disposition: HOME / SELF CARE / HOMELESS Condition: STABLE Referrals: JORDAN LOPEZ MD (PCP) Patient Instructions: Chest Pain (Nonspecific), Hypertension, Rib Contusion Scripts Clonidine Hcl (CLONIDINE HCL) 0.1 Mg Tablet 0.1 MG PO BID PRN for SEE COMMENTS, #20 TAB HYPERTENSION Prov: ENEIDA MARES DO 11/19/20 ENEIDA MARES I DO Nov 18, 2020 22:59
[2020-11-18 23:19] LABS: BASO # 0.1 x10^3/uL (0.0-0.2); BASO % 1 % (0-3); EOS # 0.3 x10^3/uL (0.0-0.7); EOS % 4 % (0-3); HEMATOCRIT 36.9 % (36.0-47.0); HEMOGLOBIN 12.5 g/dL (12.0-15.5); LYMPH % 24 % (24-48); MEAN CORPUSCULAR HEMOGLOBIN 32 pg (25-35); MEAN CORPUSCULAR HGB CONC 34 g/dL (31-37); MEAN CORPUSCULAR VOLUME 94 fL (79-100); MONO # 0.9 x10^3/uL (0.0-1.1); MONO % 11 % (0-9); NEUT # 5.1 x10^3/uL (1.8-7.7); NEUT % 61 % (31-73); PLATELET COUNT 254 x10^3/uL (140-400); RED BLOOD COUNT 3.94 x10^6/uL (3.50-5.40); RED CELL DISTRIBUTION WIDTH 13.1 % (11.5-14.5); WHITE BLOOD COUNT 8.4 x10^3/uL (4.0-11.0)
[2020-11-18 23:33] LABS: CALCIUM 9.4 mg/dL (8.5-10.1); CREATININE 1.4 mg/dL (0.6-1.0); GFR 37.1
--- NOTE | 2020-11-18 23:34 | EKG ---
[facility] [address] [place] [address] Test Date: 2020-11-18 Test Time: 22:41:35 Pat Name: DALLIN BRIDGES Department: Room: Gender: F Support Teacher: : 1950 Requested By: ENEIDA MARES Order Number: [id number] Reading MD: Measurements Intervals [place] Rate: 56 P: 29 [place]: 202 QRS: -7 QRSD: 86 T: 24 QT: 402 QTc: 390 Interpretive Statements SINUS RHYTHM LEFTWARD AXIS NO SPECIFIC ECG ABNORMALITIES RI6.01 No previous ECG available for comparison
[2020-11-18 23:39] LABS: ALBUMIN 3.6 g/dL (3.4-5.0); ALBUMIN/GLOBULIN RATIO 0.9 (1.0-1.7); TOTAL BILIRUBIN 0.6 mg/dL (0.2-1.0); TOTAL PROTEIN 7.5 g/dL (6.4-8.2)
[2020-11-19] MEDS ORDERED: LABETALOL 20 MG/4 ML DISP.SYRIN. IVP ONE (00:30)
[2020-11-19] MEDS ORDERED: hydrALAZINE 20 MG/ML VIAL. IVP ONE (01:30)
[2020-11-19] MEDS ORDERED: ASPIRIN CHEWABLE 81 MG TABLET. PO ONE (02:30)
--- NOTE | 2020-11-19 02:33 | RAD ---
INDICATION: Reason: chest pain / Spl. Instructions: / History: COMPARISON: February 2019 FINDINGS: Single view of chest obtained. Cardiac silhouette mildly enlarged with calcific atherosclerosis. Degenerative changes the spine. Patchy opacity left lung base. IMPRESSION: * Mild patchy opacity at left lung base could be atelectasis or infiltrate Electronically signed by: Flako Savage MD (11/19/2020 2:31 AM) [id number]
[2020-11-19] MEDS ORDERED: MORPHINE SULFATE 2 MG/ML INJ. IV PRN (03:00)
[2020-11-19] MEDS ORDERED: ONDANSETRON PF 4 MG/2 ML VIAL. IV PRN (03:00)
[2020-11-19] MEDS ORDERED: CLON0.1T PO (03:21)
[2020-11-19 03:30] VITALS: BP 177/73
--- NOTE | 2020-11-21 01:14 | EKG ---
[facility] [address] [place] [address] Test Date: 2020-11-19 Test Time: 01:42:05 Pat Name: DALLIN BRIDGES Department: Room: Gender: F Sales Support Rep: : 1950 Requested By: ENEIDA MARES Order Number: [id number] Reading MD: Measurements Intervals [place] Rate: 66 P: 34 [place]: 198 QRS: -4 QRSD: 88 T: 28 QT: 394 QTc: 415 Interpretive Statements SINUS RHYTHM ATRIAL PREMATURE COMPLEX(ES) LEFTWARD AXIS NO SPECIFIC ECG ABNORMALITIES RI6.01 No previous ECG available for comparison
== END 2020-11-19 03:50 | disposition home or self-care (01) ==
LOC: ER 21:24
DX: I10 Essential (primary) hypertension (principal); R07.89 Other chest pain; G89.11 Acute pain due to trauma; E10.9 Type 1 diabetes mellitus without complications; W01.0XXA Fall on same level from slipping, tripping and stumbling without subsequent striking against object, initial encounter; Y93.89 Activity, other specified; Y92.89 Other specified places as the place of occurrence of the external cause; Y99.8 Other external cause status
CPT/HCPCS: 36415; 71045; 80053; 84484; 85025; 93005; 96374; 96375; 99285; J0360; J3490